=== PATIENT | female | born 1980 | race Caucasian/White ===

== ENCOUNTER → 2017-10-03 | Outpatient (CLI) | payer OTHER ==
[~2017-10-03] MED LIST: MTR600X PO; OXYC5TAB PO; PRENTAB26 PO
== END | disposition home or self-care (01) ==
LOC: C.LAB1850 15:07
PROVIDERS: ATTEND Obstetrics & Gynecology
DX: O03.9 Complete or unspecified spontaneous abortion without complication (principal)

== ENCOUNTER → 2017-10-11 | Outpatient (CLI) | payer OTHER ==
[~2017-10-11] MED LIST changes: -MTR600X PO; -OXYC5TAB PO
== END | disposition home or self-care (01) ==
LOC: C.LAB1850 11:38
PROVIDERS: ATTEND Obstetrics & Gynecology
DX: O03.9 Complete or unspecified spontaneous abortion without complication (principal)

== ENCOUNTER → 2017-10-18 | Outpatient (CLI) | payer OTHER | END | disposition home or self-care (01) | LOC: C.LAB1850 14:24 | PROVIDERS: ATTEND Obstetrics & Gynecology | DX: O03.9 Complete or unspecified spontaneous abortion without complication (principal) ==

== ENCOUNTER 2019-10-09 05:38 | Inpatient (IN) ==
--- NOTE | 2019-10-08 12:59 | History & Physical Report ---
Date of Service October 08, 2019 Assessment & Plan (1) Supervision of elderly multigravida: (2) Previous delivery, antepartum: (3) Encounter for sterilization: Will plan admission in am for planned repeat c/s and bilateral tubal sterilization. Risks, alternatives and complications of procedures reviewed with patient and include but are not limited to bleeding, infection, anesthesia, injury to bowel, bladder, vessels, nerves, ureters, delayed complication, injury to structures failure of procedure with resultant , ectopic which can be medical emergency. Patient desires to proceed and consent signed. She is aware of preop and postop instructions and course. . History of Present Illness Chief Complaint: planned c/s Primary Care Provider: Claudio Denton MD 38yo at 39wk nae presents to L&D for planned repeat c/section and desires sterilization. She notes no bleeding or pain. No ctx. + movement. PNC c/b 1. prior c/s x 2 2. desires section 3. ama PNL rh pos, ri, gbs neg Allergies Allergy/AdvReac Type Severity Reaction Status Date / Time Penicillins Allergy Unknown RASH Verified 10/08/19 11:57 Home Medications Home Medications Medication Instructions Recorded Confirmed Type [id number] acid 1 tab PO QAM 10/08/19 10/08/19 History [ Multi] Patient History Medical History (Updated 10/08/19 @ 13:45 by Nataly Nboles MD, FACOG) Breech presentation, antepartum History of spontaneous (Inactive) History of varicella Nausea and vomiting after administration of anesthetic agent JUST AFTER KNEE SCOPE Supervision of other normal Uterine size date discrepancy (Inactive) Surgical History (Updated 10/08/19 @ 12:01 by Jennifer Gibbons RN) History of arthroscopy of knee RIGHT History of delivery X2 History of wisdom tooth extraction Social History (Updated 04/16/19 @ 13:10 by Yue Brown) Preferred Language: Serbian Communication Ability: Effective Pharmaceutical Development Technician Required: No Beliefs That Will Affect Care: None marital status: Current Living Situation: Spouse and Family Feels Safe at Home: Yes Smoking Status: Never smoker Second Hand Exposure: No ; Hx Alcohol Use: No Hx Substance Use: No Physical Exam Constitutional: WD/WN, vitals as above Respiratory: normal respiratory effort, lungs clear to auscultation Cardiovascular: Rate/Rhythm: regular rate and regular rhythm Gastrointestinal (Abdomen): Percussion/Palpation: abdomen soft (gravid); abdomen nontender and no guarding Musculoskeletal: nt calves Neurologic: grossly normal Psychiatric: A+Ox3, euthymic affect Genitourinary: OB Exam Abdomen: + fundal height (c/w dates), + heart tones (present, nl nst reactive) and + vertex Coding Level of Care Code None Diagnoses Supervision of elderly multigravida O09.529 Previous delivery, antepartum O34.219 Encounter for sterilization Z30.2
[2019-10-09] MEDS ORDERED: CEFAZOLIN 2000MG 2,000 MG/15 ML SYR IV SCH (06:00)
[2019-10-09] MEDS ORDERED: CITRIC ACID/SODIUM CITRATE 15 ML UDC PO SCH (06:00)
[2019-10-09] MEDS ORDERED: SODIUM CHLORIDE 0.9% 250 ML IV PRN (06:13)
[2019-10-09] MEDS ORDERED: LACTATED RINGER'S 1,000 ML IV SCH ×2 (06:15→09:20)
[2019-10-09 06:37] LABS: Basophils # (auto) 0.01 K/uL (0-0.2); Basophils % (auto) 0.2 %; Eosinophils # (auto) 0.04 K/uL (0-0.5); Eosinophils % (auto) 0.8 %; Hematocrit (blood only) 30.3 % (37-47); Hemoglobin 10.2 g/dL (12.0-16.0); Immature Granulocytes # (auto) 0.03 K/uL (0.00-0.02); Immature Granulocytes % (auto) 0.6 %; Lymphocytes # (auto) 1.24 K/uL (1.2-3.4); Lymphocytes % (auto) 24.5 %; Mean Corpuscular Hemoglobin 30.4 pg (25-34); Mean Corpuscular Volume 90.4 fL (80-100); Mean Platelet Volume 8.9 fL (7.4-10.4); Monocytes % (auto) 7.9 %; Neutrophils # (auto) 3.34 K/uL (1.4-6.5); Platelet Count 138 K/uL (130-400); RDW Coefficient of Variation 13.8 % (11.5-14.5); RDW Standard Deviation 45.2 fL (36.4-46.3); Red Blood Count 3.35 M/uL (4.2-5.4); White Blood Count 5.06 K/uL (4.8-10.8)
[2019-10-09 06:42] LABS: Mean Corpuscular Hgb Conc 33.7 g/dL (32-36)
[2019-10-09] MEDS ORDERED: ONDANSETRON INJ 2 MG/ML 2 ML VIAL ONE (06:54)
[2019-10-09] MEDS ORDERED: OXYTOCIN 10 UNITS/ML VIAL ONE (06:54)
[2019-10-09] MEDS ORDERED: MoRPHine SULFATE PF 1 MG/ML 10 ML AMP/VIAL ONE (06:54)
[2019-10-09] MEDS ORDERED: fentaNYL citrate 100 MCG/2 ML VIAL ONE (06:54)
--- NOTE | 2019-10-09 07:24 | History & Physical Bridge Note ---
Date of Service October 09, 2019 History & Physical Bridge Note I have examined the patient, reviewed the History & Physical and in the interval since the performance of the History & Physical I have noted the following changes of clinical significance: no changes noted. Wants to proceed with planned surgery. arrhythmia noted. Will notify peds.
--- NOTE | 2019-10-09 08:27 | Post Operative Brief Note ---
PG Immediate Post Op with CF Date of Surgery October 09, 2019 Pre & Post Diagnosis Operation Date: 10/09/19 07:30 Pre-Op Diagnosis: Term , Previous Cesearean Sections X 2, Desire for sterilization Post-Op Diagnosis: Same with delivery of living female child I identified the patient and participated in the time-out.: Yes Procedure Operation Date: 10/09/19 07:30 <No data on this case meets the specified criteria> 1. Repeat Low Transverse Section 2. Modified Abby Bilateral Tubal Ligation Surgeon Nataly Nobles MD, FACOG Pipeline Integrity Engineer Alda Estimated Blood Loss 200 Findings Consistent with Post-Op Diagnosis (viable female apgars 8,9. normal uterus tubes and ovaries bilaterally) Fluids 800 Specimens Specimen Description: placenta- hold cord blood specimen portion right fallopian tube portion left fallopian tube Drains Deal Catheter (16 f Deal inserted after spinal anesthesia with return of clear yellow urine. Anesthesia to monitor output throughout procedure.) Anesthesia Type Spinal Complications none Disposition Accompanied Patient To Recovery: No Disposition: L&D
[2019-10-09] MEDS ORDERED: ONDANSETRON INJ 2 MG/ML 2 ML VIAL IV PRN (08:32)
[2019-10-09] MEDS ORDERED: MoRPHine SULFATE 2 MG/ML CARP IV PRN (08:32)
[2019-10-09] MEDS ORDERED: NALOXONE HCL 0.4 MG/1 ML VIAL/CARP IV PRN (08:32)
[2019-10-09] MEDS ORDERED: PROMETHAZINE HCL 25 MG in SODIUM CHLORIDE 0.9% 50 ML IV PRN (08:32)
[2019-10-09] MEDS ORDERED: MoRPHine SULFATE PF 1 MG/ML 10 ML AMP/VIAL INT SPINAL ONE (08:32)
[2019-10-09] MEDS ORDERED: NALBUPHINE HCL INJ 10 MG/ML AMP IV PRN (08:32)
[2019-10-09] MEDS ORDERED: NALOXONE HCL 0.08 MG in SYRINGE 1.8 ML IV PRN (08:32)
[2019-10-09] MEDS ORDERED: LACTATED RINGER'S 500 ML IV PRN (08:32)
[2019-10-09] MEDS ORDERED: NALOXONE HCL 1 MG in SODIUM CHLORIDE 0.9% 1000ML 1,000 ML IV PRN (08:32)
[2019-10-09] MEDS ORDERED: ePHEDrine sulfate 50 MG/ML AMP IV PRN (08:32)
[2019-10-09] MEDS ORDERED: DiphenhydrAMINE HCL 50 MG/ML VIAL IV PRN (08:32)
--- NOTE | 2019-10-09 08:39 | Operative Report ---
PG Post Operative Report Pre & Post Diagnosis Operation Date: 10/09/19 07:30 Pre-Op Diagnosis: 39+ week intrauterine , Previous Section X 2, Desire for sterilization Post-Op Diagnosis: Same with delivery of living female child I identified the patient and participated in the time-out.: Yes Procedure Operation Date: 10/09/19 07:30 1. Repeat Low Transverse Section 2. Modified Abby Bilateral Tubal Ligation Surgeon Nataly Nobles MD, FACOG Measuring Machine Tender Alda Estimated Blood Loss 200 Findings Consistent with Post-Op Diagnosis (viable female infant, apgars 8,9. normal uterus tubes and ovaries bilaterally. ) Fluids 800 Specimens portions of left and right fallopian tubes,, cord blood Drains hernandez Anesthesia Type Spinal Complications none Disposition Accompanied Patient To Recovery: No Disposition: L&D Indications 38yo at 39+weeks who presented to L&D for planned repeat section and desire for sterilization. She has had 2 prior sections and is done childbearing after this delivery. She is aware of alternatives for control and desired to proceed. Description of Procedure The patient was taken to the operating room and identified. After adequate anesthesia was obtained, she was placed in the supine position with a leftward tilt on the operating table and prepped and draped in the usual sterile fashion. A hernandez catheter had already been placed. The knife was used to create a Pfannensteil skin incision that was carried down to the underlying layer of fascia. The fascia was nicked in the midline and this opening was extended laterally using Ray scissors. Mony clamps were placed on the superior and inferior aspect of the fascial incision tenting it upward and the underlying rectus muscles were dissected off the overlying fascia both sharply and bluntly using Ray scissors. The rectus muscles were bluntly in the midline. The peritoneal cavity was bluntly entered into. This opening was stretched. The bladder blade was placed. The vesicouterine peritoneum was elevated and opened up into and the bladder flap was created digitally and bladder blade was replaced. The knife was used to create a hysterotomy and this opening was stretched. The operators hand was placed through the hysterotomy and the bladder blade was removed. The head was elevated and flexed and with fundal pressure the head was delivered. The shoulders and body were rapidly delivered. The cord was clamped and cut and the 's mouth and nares were bulb suctioned. The infant was handed off to the awaiting pediatricians. Cord blood was obtained. The placenta was manually expressed. The uterus was exteriorized and cleared of all clots and debris. Dilute IV Pitocin was begun. The uterine tone was improving. The hysterotomy was closed in a running interlocking fashion using 0 Vicryl followed by a second layer of interrupted figure of eight stitches with 0 Vicryl. The hysterotomy was hemostatic. The right fallopian tube was identified to its fimbriated end. A knuckle of tube was elevated with a Steve clamp. 2-0 plain suture used to doubly ligate the tube. The tube was transected and the stumps were cauterized with bovie cautery. The tissue was sent as specimen. The left fallopian was identified, elevated, doubly ligated, transected in a similar fashion. The stumps were cauterized and the specimen was sent. The pelvis was irrigated. The uterus was returned to the abdomen. The gutters were cleared of all clots and debris. The hysterotomy and tubal sites were reinspected and noted to be hemostatic. The fascia was then closed in running fashion using 0 Vicryl. The subcutaneous fat was copiously irrigated. The skin was closed in a subcuticular fashion using 4-0 Vicryl. At this point the procedure was terminated. The patient was transferred to the rec overy room in stable condition. All sponge, lap and needle counts are correct x2. I attest to the content of the Intraoperative Record and any orders documented therein. Any exceptions are noted below.
[2019-10-09] MEDS ORDERED: SODIUM CHLORIDE 0.9% 1000ML 1,000 ML IV SCH (08:45)
[2019-10-09] MEDS ORDERED: NO NARCOTICS OR SEDATIVES SCH (08:45)
[2019-10-09] MEDS ORDERED: DC INTRASPINAL MORPHINE SCH (08:45)
[2019-10-09] MEDS ORDERED: HYDROCORTISONE ACETATE 25 MG SUPP PR PRN (09:20)
[2019-10-09] MEDS ORDERED: MAGNESIUM HYDROXIDE SUSP 30 ML UDC PO PRN (09:20)
[2019-10-09] MEDS ORDERED: DIPHTHERIA/TETANUS/PERTUSSIS 0.5 ML SYR/VIAL IM ONE (09:20)
[2019-10-09] MEDS ORDERED: OXYTOCIN 20 UNITS in LACTATED RINGER'S 1,000 ML IV SCH (09:20)
[2019-10-09] MEDS ORDERED: BENZOCAINE 20% AER SPR 82.5 GM CAN EXT PRN (09:20)
[2019-10-09] MEDS ORDERED: SUPERCREAM 0.870% 15 GM JAR EXT PRN (09:20)
[2019-10-09] MEDS: KETOROLAC 30 MG/ML VIAL IV PRN (11:27)
[2019-10-09] MEDS: SIMETHICONE 80 MG CHEW PO SCH ×3 (13:15→21:27)
[2019-10-09] MEDS: DOCUSATE SODIUM 100 MG CAP PO SCH (21:27)
[2019-10-10] MEDS: KETOROLAC 30 MG/ML VIAL IV PRN (02:09)
[2019-10-10] MEDS ORDERED: PROMETHAZINE HCL 25 MG in SODIUM CHLORIDE 0.9% 50 ML IV PRN (02:33)
[2019-10-10] MEDS ORDERED: OXYCODONE/ACETAMINOPHEN 5mg/325mg TAB PO PRN (02:33)
[2019-10-10] MEDS ORDERED: KETOROLAC 30 MG/ML VIAL IV PRN (02:33)
[2019-10-10] MEDS ORDERED: ONDANSETRON INJ 2 MG/ML 2 ML VIAL IV PRN (02:33)
[2019-10-10] MEDS ORDERED: DiphenhydrAMINE HCL 50 MG/ML VIAL IV PRN (02:33)
[2019-10-10] MEDS ORDERED: ZOLPIDEM TARTRATE 5 MG TAB PO PRN (02:33)
--- NOTE | 2019-10-10 06:07 | Obstetrical Progress Note ---
Date of Service October 10, 2019 Assessment & Plan (1) Status post : Evelin is a 38 yo on POD 1 after planned, repeat c/s and bilateral tubal ligation - GBS-, Rh+, Rubella immune -patient is doing clinically well Continue routine post- care - After discharge will have [address] Nobles Supervising Physician Co-Signing Physician Notes I have reviewed the resident's note and examined the patient myself, and agree with the note above. Dressing removed by resident in my presence and c/d/i. Subjective Ambulation: ambulating normally Voiding: no voiding problems Passing Gas:: Yes Diet Tolerance:: regular diet Lochia:: Small Feeding Type:: breast feeding Review of Systems Constitutional: no fever, no chills and no sweats Respiratory: no cough and no dyspnea Cardiovascular: no chest pain and no palpitations Gastrointestinal: no nausea and no vomiting Genitourinary: no dysuria and no urinary frequency Neurologic: no headache(s) Physical Exam Constitutional: WD/WN, vitals as above no acute distress Respiratory: normal respiratory effort, lungs clear to auscultation does no t use accessory muscles Auscultation: no crackles, no rhonchi, no wheezes and no pleural rub Cardiovascular: Rate/Rhythm: regular rate and regular rhythm Heart Sounds: normal S1 and normal S2; no gallop, no murmur and no cardiac rub Extremities: no calf tenderness and no pedal edema Gastrointestinal (Abdomen): Inspection/Auscultation: normal bowel sounds; abdomen not distended Percussion/Palpation: abdomen soft surgical incision: steri strips in place; minimal dried blood visible; no warmth; appropriate post-op tenderness Genitourinary: Uterus: fundus firm, palpable 1 cm below the umbilicus Results & Data Vital Signs (Past 12 Hours) Vital Signs Temp Pulse Resp BP Pulse Ox 10/10/19 03:45 37.4 C 60 16 105/68 97 10/10/19 02:30 18 98 10/10/19 01:30 16 96 10/10/19 00:30 18 97 10/10/19 00:15 37.2 C 62 18 105/68 96 10/09/19 23:30 16 98 10/09/19 22:15 14 100 10/09/19 21:30 15 98 10/09/19 20:30 16 97 10/09/19 19:30 37.5 C 63 17 101/58 L 98 10/09/19 18:24 20 100 Resident Activity Tracking Resident Involvement: Resident Care Provided Care Provided: OB Delivery
[2019-10-10 06:48] LABS: Basophils # (auto) 0.01 K/uL (0-0.2); Basophils % (auto) 0.1 %; Eosinophils # (auto) 0.03 K/uL (0-0.5); Eosinophils % (auto) 0.4 %; Hematocrit (blood only) 28.9 % (37-47); Hemoglobin 9.6 g/dL (12.0-16.0); Immature Granulocytes # (auto) 0.04 K/uL (0.00-0.02); Immature Granulocytes % (auto) 0.5 %; Lymphocytes # (auto) 1.04 K/uL (1.2-3.4); Lymphocytes % (auto) 13.5 %; Mean Corpuscular Hgb Conc 33.2 g/dL (32-36); Mean Corpuscular Volume 93.2 fL (80-100); Mean Platelet Volume 9.5 fL (7.4-10.4); Monocytes # (auto) 0.63 K/uL (0.11-0.59); Monocytes % (auto) 8.2 %; Neutrophils # (auto) 5.98 K/uL (1.4-6.5); Neutrophils % (auto) 77.3 %; Platelet Count 163 K/uL (130-400); RDW Standard Deviation 47.3 fL (36.4-46.3); White Blood Count 7.73 K/uL (4.8-10.8)
[2019-10-10] MEDS: IBUPROFEN 600 MG TAB PO PRN ×4 (07:47→20:45)
[2019-10-10] MEDS: SIMETHICONE 80 MG CHEW PO SCH ×4 (07:47→20:45)
[2019-10-10] MEDS: DOCUSATE SODIUM 100 MG CAP PO SCH ×2 (07:47→20:45)
[2019-10-11] MEDS: IBUPROFEN 600 MG TAB PO PRN ×3 (02:31→10:57)
[2019-10-11 06:30] LABS: Hematocrit (blood only) 30.9 % (37-47); Hemoglobin 10.4 g/dL (12.0-16.0)
[2019-10-11] MEDS: SIMETHICONE 80 MG CHEW PO SCH (09:08)
[2019-10-11] MEDS: DOCUSATE SODIUM 100 MG CAP PO SCH (09:08)
--- NOTE | 2019-10-11 10:28 | Obstetrical Progress Note ---
Date of Service October 11, 2019 Assessment & Plan (1) Status post : doing well post op from c/s and wants to go home, instructions reviewed. f/u 6wk pp check. Day #:: 2 Subjective Ambulation: ambulating normally Voiding: no voiding problems Passing Gas:: Yes Diet Tolerance:: regular diet Lochia:: Small Feeding Type:: breast feeding pain controlled with motrin, does not want narcotic script. ready to go home. no cp or sob. had some muscular pain in right ant chest wall that went away, ? related to position of baby with feed Physical Exam Constitutional WD/WN, vitals as above Respiratory normal respiratory effort, lungs clear to auscultation Cardiovascular Rate/Rhythm: regular rate and regular rhythm Gastrointestinal (Abdomen) Inspection/Auscultation: abdomen normal to inspection and + abdominal surgical incision (c/d/i with bruising) Percussion/Palpation: abdomen soft fundus firm 2 cm below umbilicus Musculoskeletal nt calves Neurologic grossly normal Psychiatric A+Ox3, euthymic affect Results & Data Vital Signs (Past 12 Hours) Vital Signs Temp Pulse Resp BP Pulse Ox 10/11/19 10:10 97.5 F L 60 18 115/69 99 10/11/19 07:45 97.5 F L 60 18 115/69 99 10/10/19 23:45 97.7 F 66 18 122/76 97
--- NOTE | 2019-10-14 06:26 | Anesthesiology Progress Note ---
Date of Service October 14, 2019 Anesthesia Post Procedure Pain Intensity Lower Abdomen: Pain Intensity: 3 Transfer of Care Handoff Completed per policy Notes Mental Status: alert / awake / arousable and participated in evaluation Patient Amnestic to Procedure: Yes Nausea / Vomiting: adequately controlled Pain: adequately controlled Airway Patency, RR, SpO2: stable & adequate BP & HR: stable & adequate Hydration State: stable & adequate Anesthetic Complications: no major complications apparent and Pt Satisfied with anesthetic care
--- NOTE | 2019-10-14 06:31 | Anesthesiology Consultation ---
Date of Service October 14, 2019 Assessment & Plan ASA ASA2 Proposed Anesthesia Anesthesia Type: Spinal Risk / Benefits Reviewed With: PT / POA / Parent / Guardian, Accepts Plan and Informed Consent Obtained Additional Comments: late entry. pt seen prior to surgery on 10/09/19 History Surgery Operation Date: 10/09/19 07:30 Proposed Procedures p Section in LD - Nataly Nobles MD, FACOG s with Bilateral Tubal Ligation - Nataly Nobles MD, FACOG Height/Weight Height: 5 ft 3 in Weight: 74.843 kg Allergies Allergy/AdvReac Type Severity Reaction Status Date / Time Penicillins Allergy Unknown RASH Verified 10/09/19 05:51 Medications Home Medications Medication Instructions Recorded Confirmed Last Taken Multi 1 tab PO QAM 10/08/19 10/08/19 Unknown Past Medical History Medical History Breech presentation, antepartum History of spontaneous (Inactive) History of varicella Nausea and vomiting after administration of anesthetic agent JUST AFTER KNEE SCOPE Supervision of other normal Uterine size date discrepancy (Inactive) Past Family History Family History Aunt Breast cancer maternal- dx in her 50s Ovarian cancer maternal- 40s Mother Hypertension Dyslipidemia Past Surgical History Surgical History History of arthroscopy of knee RIGHT History of delivery X2 History of wisdom tooth extraction Social History Smoking Status: Never smoker Do You Dip or Chew Tobacco: No Hx Alcohol Use: No Hx Substance Use: No substance use type: does not use Review of Systems denies fever/cough/ colds/ chest pain/ SOB/ NGUYEN Constitutional: no fever and no chills Respiratory: no cough and no dyspnea denies NGUYEN Cardiovascular: no chest pain and no dyspnea on exertion Physical Exam Vital Signs Last Vital Signs Temp 36.4 C L 10/11/19 10:10 Pulse 60 10/11/19 10:10 Resp 18 10/11/19 10:10 BP 115/69 10/11/19 10:10 Pulse Ox 99 10/11/19 10:10 ENMT Mouth: no TMJ abnormality and no dentition abnormality Thyromental Distance: > or= 3.5 Finger Breadths Mallampati Class: II Neck neck extension not limited Respiratory normal respiratory effort; no respiratory distress Auscultation: lungs clear to auscultation bilaterally Cardiovascular Rate/Rhythm: regular rate and regular rhythm Neurologic moves all extremities Psychiatric Orientation: alert and oriented x 3 Testing Laboratory Results 10/11/19 06:17 Blood Type B Positive 10/09/19 06:28 Antibody Screen NEGATIVE 10/09/19 06:28
== END 2019-10-11 11:20 | disposition home or self-care (01) | DRG 785 ==
LOC: 4S1 05:38 → EDSTATUS 07:30 → 4S2 11:25
PROC: M.PPTLD (2019-10-09 07:30)